=== PATIENT | female | born 1975 | race Caucasian/White ===

== ENCOUNTER → 2022-06-12 09:42 | Outpatient (CLI) | payer OTHER, BC, SELFPAY ==
--- NOTE | ~2022-06-12 | MM_ITS ---
EXAMINATION: MM screening gomez BI w ted HISTORY: Screening mammogram TECHNIQUE: Craniocaudal and mediolateral oblique 3-D tomosynthesis images were obtained and synthetic 2-D images were generated. CAD analysis was submitted and interpreted. COMPARISON: 02/15/2018 bilateral screening mammogram BREAST PARENCHYMAL COMPOSITION: FINDINGS: There is no evidence of suspicious mass, calcification, or architectural distortion to sugg est malignancy in either breast. There has been no suspicious interval change. IMPRESSION: 1. No mammographic evidence of malignancy. 2. Recommend routine screening mammography in one year. BI-RADS Category 1: Negative Reviewed, dictated and finalized at location A.
--- NOTE | ~2022-06-12 | XR_ITS ---
EXAMINATION: XR chest 2V DATE: 06/12/2022 10:22 INDICATION: Cough TECHNIQUE: PA and lateral views of the chest are obtained. COMPARISON: None available FINDINGS: The lungs are free of acute opacities. No pleural effusion or pneumothorax. The cardiomedia stinal silhouette is normal. There is mild thoracic spondylosis. IMPRESSION: 1. No acute cardiopulmonary abnormality. Reviewed, dictated and finalized at location A.
== END ==
PROVIDERS: PCP Internal Medicine; Visit Provider Internal Medicine
DX: Z12.31 Encounter for screening mammogram for malignant neoplasm of breast (principal); R05.9 Cough, unspecified
CPT/HCPCS: 71046; 77063; 77067

== ENCOUNTER 2022-10-14 08:56 | Outpatient (CLI) | payer OTHER, BC, SELFPAY ==
--- NOTE | 2022-10-14 13:23 | WPDPFTINT ---
PFT Procedure Performed PFT Procedure Performed Plethysmography (Lung Vol) Diffusing Cap (DLCO) Flow Vol Loop Spirometry w/o Bronchodil PFT Interpretation This is a pulmonary function test with spirometry, plethysmography and diffusing capacity. The test was performed and results interpreted in accordance with the 2019 and 2005 ATS/ERS Task Force guidelines respectively using the Global Lung Function Initiative-2012 reference equations. Patient demonstrated good effort and cooperation. Reproducibility criteria were met. The quality of the spirometry maneuver was Grade A. Findings: Spirometry: The contour the expiratory flow tracing shows a mild mid expiratory plateau knee contour in 3 of 3 efforts. The contour the inspiratory flow tracing is normal. The FVC is 3.95 L, 94% predicted. The FEV1 is 3.35 L, 100% predicted. The FEV1: FVC ratio is 85%. Plethysmography: The total lung capacity is 5.28 L, 91% predicted. The functional residual capacity is 1.80 L, 55% predicted. The residual volume is 1.33 L, 68% predicted. Diffusing capacity: The diffusing capacity unadjusted for hemoglobin and carboxyhemoglobin is 23.4, 93% predicted. The diffusing capacity adjusted for alveolar volume is 4.67, 105% predicted. Impression: The contour the expiratory flow tracing shows a reproducible mild knee pattern. The knee pattern can be a normal variant or pathologic and has been attributed to a choke point section of the bronchial tree. The normal variant is more common in younger female patients, decreases with age and is more pronounced in the post bronchodilator efforts. The pattern has also been described with kyphosis, kyphoscoliosis, central obstructing mass, and post lung transplantation. Otherwise the spirometry is normal without evidence of an obstructive abnormality. The total lung capacity and residual volume are normal with a decreased functional residual capacity. This is an abnormal but nonspecific lung volume pattern. The diffusing capacity is normal. There are no prior studies for comparison
== END 2022-10-14 08:57 | disposition home or self-care (01) ==
LOC: ANHPFT 08:58
PROVIDERS: PCP Internal Medicine; Visit Provider Internal Medicine
DX: R05.9 Cough, unspecified (principal)
CPT/HCPCS: 94375; 94726; 94729

== ENCOUNTER 2023-12-07 01:07 | Day surgery (SDC) | payer OTHER, BC, SELFPAY ==
[2023-11-08 15:10] VITALS: BMI 37.4
--- NOTE | 2023-12-05 12:03 | SUR.PREOP ---
Patient called regarding upcoming procedure. Reviewed preop instructions, appointment times, and procedure prep.
--- NOTE | 2023-12-06 16:20 | PM.HPGS ---
History of Present Illness History of Present Illness Consent: Risks, benefits, and alternatives have been discussed and questions answered. Patient agrees to proceed with procedure. Chief complaint: Anemia,Unspecified Narrative: Sabi Campoverde is a 48 year old female Referred for colonoscopy due to anemia. Review of Systems Review of Systems: All systems reviewed & are unremarkable except as noted in HPI and below PMFSH Family History Family History Father Hypertension Colon polyp Mother Hypertension Family history of diabetes mellitus in first degree relative Sibling Family history of allergic disorder Grandparent Family history of lung cancer Other Family history of malignant neoplasm of male breast Social History Social History Smoking status: Former smoker Alcohol intake: current Alcohol use details: occasional Substance use type: does not use Living arrangements: with family Spiritual care concerns: No Meds Home Medications and Allergies Home Medications Medication Instructions Recorded Confirmed Type fluticasone propionate 50 1 spray intranasal DAILY 11/08/23 11/08/23 History mcg/actuation nasal spray,suspension losartan 50 mg tablet 50 mg PO DAILY 11/08/23 11/08/23 History metformin 500 mg tablet,extended 500 mg PO DAILY 11/08/23 11/08/23 History release 24 hr montelukast 10 mg tablet 10 mg PO DAILY 11/08/23 11/08/23 History venlafaxine 75 mg capsule,extended 75 mg PO DAILY 11/08/23 11/08/23 History release 24 hr Allergies Allergy/AdvReac Type Severity Reaction Status Date / Time No Known Allergies Allergy Verified 12/07/23 07:46 Exam Resp: Auscultation: clear to auscultation bilaterally Cardio: Rate: regular rate Rhythm: regular rhythm GI: GI Palp: Yes Soft to palpation and No Tenderness to palpation present (GI) Assessment and Plan Assessment and plan (1) Colon cancer screening: Code(s): Z12.11 - Encounter for screening for malignant neoplasm of colon Status: Acute Assessment and Plan: Colonoscopy with possible biopsy or polypectomy or cautery or injection of substances.
[2023-12-07 07:52] VITALS: BP 144/89; PULSE 99; RESP 18; TEMP 36.5; O2SAT 99
[2023-12-07] MEDS: LACTATED RINGERS 1,000 ML 150 ML IV CONT (08:01)
[2023-12-07 08:07] LABS: Glucose Point of Care 135 mg/dl (65-105)
--- NOTE | 2023-12-07 09:05 | WPDANESEPPF ---
Anes - Initial Pre Proc Eval Procedure: Operation Date: 12/07/23 09:00 Proposed Procedures p Colonoscopy - Seth Jackson MD Date/Time: 12/07/23 09:05 Surgeon: Seth Jackson MD Pre Op Diagnosis: Anemia,Unspecified Patient Data Age: 48 Gender: F Height: 1.75 m Weight: 114.4 kg Last Vital Signs Temp 97.7 F 12/07/23 07:52 Pulse 99 12/07/23 07:52 Resp 18 12/07/23 07:52 BP 144/89 H 12/07/23 07:52 Pulse Ox 99 12/07/23 07:52 O2 Del Method Room Air 12/07/23 07:52 Allergies Allergy/AdvReac Type Severity Reaction Status Date / Time No Known Allergies Allergy Verified 12/07/23 07:46 Home Medications Medication Instructions Recorded Confirmed Type fluticasone propionate 50 1 spray intranasal DAILY 11/08/23 11/08/23 History mcg/actuation nasal spray,suspension losartan 50 mg tablet 50 mg PO DAILY 11/08/23 11/08/23 History metformin 500 mg tablet,extended 500 mg PO DAILY 11/08/23 11/08/23 History release 24 hr montelukast 10 mg tablet 10 mg PO DAILY 11/08/23 11/08/23 History venlafaxine 75 mg capsule,extended 75 mg PO DAILY 11/08/23 11/08/23 History release 24 hr Laboratory Tests 12/07/23 08:05 POC Capillary Glucose 135 H mg/dl (65-105) Patient hx anesthesia problems: none Family hx anesthesia problems: none Results Review: All pre-operative results and documents have been reviewed as part of the pre-operative evaluation. [facility] Family History Family History Father Hypertension Colon polyp Mother Hypertension Family history of diabetes mellitus in first degree relative Sibling Family history of allergic disorder Grandparent Family history of lung cancer Other Family history of malignant neoplasm of male breast Social History Social History Smoking status: Former smoker Alcohol intake: current Alcohol use details: occasional Substance use type: does not use Living arrangements: with family Spiritual care concerns: No Anes - Eval Final PreProcedure Day of Procedure 12/07/23 09:05 Patient weight: obese Heart: regular rate and rhythm Lungs: clear to auscultation Airway: Mallampati scale class II Neurological: alert and oriented Last oral intake: >/= 8 hours ASA classification: III Emergent: no Anesthetic plan: proceed Anesthesia type and monitoring: general GIVS and standard monitoring Results Review: All pre-operative results and documents have been reviewed as part of the pre-operative evaluation. Informed Consent: The patient's anesthetic plan and its attendant risks and benefits were discussed with the patient/family/POA. Questions were solicited and answers provided to the satisfaction of the patient/family/POA.
[2023-12-07 09:34] VITALS: BP 128/84; PULSE 85; RESP 18; O2SAT 100
[2023-12-07 09:39] VITALS: BP 136/89; PULSE 79; RESP 18; O2SAT 99
[2023-12-07 09:43] VITALS: BP 134/82; PULSE 76; RESP 18; O2SAT 99
== END 2023-12-07 09:55 | disposition home or self-care (01) ==
PROVIDERS: PCP Internal Medicine; Visit Provider Internal Medicine Gastroenterology
PROC: 0DJD8ZZ Inspection of Lower Intestinal Tract, Via Natural or Artificial Opening Endoscopic (ICD-10-PCS; CPT 45378; principal; 2023-12-07 09:00)
DX: Z12.11 Encounter for screening for malignant neoplasm of colon (principal); D12.2 Benign neoplasm of ascending colon; D64.9 Anemia, unspecified; E66.9 Obesity, unspecified; Z68.37 Body mass index [BMI] 37.0-37.9, adult; Z79.84 Long term (current) use of oral hypoglycemic drugs; Z79.51 Long term (current) use of inhaled steroids; Z87.891 Personal history of nicotine dependence; Z80.0 Family history of malignant neoplasm of digestive organs; Z80.1 Family history of malignant neoplasm of trachea, bronchus and lung; Z80.3 Family history of malignant neoplasm of breast
CPT/HCPCS: 45385; 82948; 88305; J2001; J2704; J7120

== ENCOUNTER 2024-05-01 09:50 | Outpatient (CLI) | payer OTHER, BC, SELFPAY ==
[2024-05-01 13:22] LABS: Mean Corpuscular HGB Conc 29.4 g/dl (32-36); Mean Corpuscular Hemoglobin 21.4 pg (26-34); Mean Corpuscular Volume 72.8 fl (80-100); Mean Platelet Volume 9.7 fl (7.4-10.4); Platelet Count Result 335 k/mm3 (150-375); Red Blood Count 4.67 M/mm3 (4.2-5.4); Red Cell Distribution Width 15.9 % (11.5-14.5); White Blood Count 7.7 K/mm3 (4.5-10.0)
[2024-05-01 13:43] LABS: Alanine Aminotransferase 31 U/L (6-35); Albumin Level 4.3 g/dL (3.5-5.1); Alkaline Phosphatase 71 U/L (38-126); Anion Gap 9 mmol/L (4-12); Aspartate Amino Transferase 29 U/L (14-36); Bilirubin,Total 0.6 mg/dL (0.2-1.3); Blood Urea Nitrogen 11 mg/dL (7-17); Calcium 8.9 mg/dL (8.4-10.2); Carbon Dioxide 24 mmol/L (22-30); Chloride 107 mmol/L (98-107); Cholesterol 187 mg/dL (0-200); Estimated Glomerular Filt Rate > 60; Glucose 114 mg/dL (65-110); HDL Direct 41 mg/dL; Potassium 4.3 mmol/L (3.4-5.0); Sodium 140 mmol/L (137-145); Triglycerides 221 mg/dL (<150)
[2024-05-01 13:52] LABS: Iron 35 ug/dL (37-170)
[2024-05-01 13:55] LABS: LDL Cholesterol Direct 115 mg/dL
[2024-05-01 14:13] LABS: Percent Iron Saturation 9 % (20-50)
[2024-05-01 14:19] LABS: Thyroid Stimulating Hormone 0.954 uIU/mL (0.465-4.680)
[2024-05-01 14:28] LABS: Ferritin 6.38 ng/mL (6.24-137)
== END 2024-05-01 09:51 | disposition home or self-care (01) ==
LOC: ANHGOSHLAB 09:52
PROVIDERS: PCP Family Medicine; Visit Provider Family Medicine
DX: E66.01 Morbid (severe) obesity due to excess calories (principal); D64.9 Anemia, unspecified; F41.9 Anxiety disorder, unspecified; R74.8 Abnormal levels of other serum enzymes; Z79.899 Other long term (current) drug therapy
CPT/HCPCS: 36415; 80053; 80061; 82728; 83540; 83550; 84443; 85027

== ENCOUNTER 2024-09-17 12:06 | Outpatient (CLI) | payer OTHER, BC, SELFPAY ==
--- NOTE | ~2024-09-17 | MM_ITS ---
EXAMINATION: MM screening gomez BI w ted HISTORY: Screening mammogram TECHNIQUE: Craniocaudal and mediolateral oblique 3-D tomosynthesis images were obtained and synthetic 2-D images were generated. CAD analysis was submitted and interpreted. COMPARISON: 06/12/2022, 02/15/2018 BREAST PARENCHYMAL COMPOSITION:Not Dense. There are scattered areas of fibroglandular density. FINDINGS: No suspicious mass, calcification, or architectural distortion are identified in either chip ast to suggest malignancy. There has been no suspicious interval change. IMPRESSION: No mammographic evidence of malignancy. Recommend routine screening mammography in one year. BI-RADS Category 1: Negative Reviewed, dictated and finalized at location . FRAZER
== END 2024-09-17 12:07 | disposition home or self-care (01) ==
LOC: MICIMG 12:08
PROVIDERS: PCP Family Medicine; Visit Provider Family Medicine
DX: Z12.31 Encounter for screening mammogram for malignant neoplasm of breast (principal)
CPT/HCPCS: 77063; 77067

== ENCOUNTER 2025-02-28 08:26 | Outpatient (CLI) | payer OTHER, BC, SELFPAY ==
--- OUTSIDE RECORDS SUMMARY | 2025-02-28 08:32 | XMS_ITS | Encounter Summary ---
Author Organization [facility] Address [address] [place] [address] Care Team Providers Care Underground Truck Operator Name Role Phone Tolu Babb MD Primary Care Provider Encounter Details Date Type Department Care Team (Late st Contact Info) Description 10/16/2020 Lab Requisition [facility] Care DermPath Lab [address] [place] [address] Paul Guerra Jr., MD [address] [place] [address] Social History Tobacco Use Types Packs/Day Years Used Date Smoking Tobacco: Never Assessed Comments Unknown Sex and Gender Information Value Date Recorded Sex Assigned at Not on file Legal Sex Female 6:29 AM HORTICULTURAL SPECIALTY GROWER INSIDE Gender Identity Not on file Sexual Orientation Not on file documented as of this encounter Plan of Treatment Not on file documented as of this encounter Procedures Procedure Name Priority Date/Time Associated Diagnosis Comments DERMATOPATHOLOGY Routine 10/16/2020 12:0 0 AM HORTICULTURAL SPECIALTY GROWER INSIDE documented in this encounter Results * DERMATOPATHOLOGY (10/16/2020 12:00 AM HORTICULTURAL SPECIALTY GROWER INSIDE) Case Report Dermatopathology Report Case: [id number] Authorizing Provider: Paul Guerra Jr., MD Collected: 10/16/2020 12:00 AM Ordering Location: [facility] Care DermPath Lab Received: 10/16/2020 01:05 PM Pathologist: Karolina Garcia MD Specimen: Skin, left posterior shoulder 12/18/202 0 1:19 PM [facility] DERMAT[facility]Y [facility] Final Diagnosis Specimen A. SKIN, left posterior shoulder: DERMAL SCAR RESIDUAL BASAL CELL CARCINOMA NOT IDENTIFIED (L90.5) 0 1:19 PM [facility] Clinical History Pigmented basal cell carcinoma. Check margins. Previous Bx: [id number]. . 0 1:19 PM [facility] Gross Description Specimen A: Received is one formalin filled container labeled with the patient's name and designated left posterior shoulder.The specimen consists of an ellipse measuring [id number] and is oriented with the suture at the 12 o'clock position labeled on the requisition as suture superior. The epidermal surface consists of a centrally located 8x7mm previous biopsy site. The 12 to 6 o'clock margin is inked green. The 6 o'clock to 12 o'clock margin is inked black. The 12 o'clock tip is submitted in cassette 1. The 6 o'clock tip is submitted in cassette 2. The remainder of the ellipse is serially sectioned and submitted in cassettes 3-4. Jar 0. 0 1:19 PM [facility]MAT[facility] Microscopic Description Specimen A. SKIN, left posterior shoulder: There are fibroblasts and collagen bundles oriented parallel to the skin surface. There are elongated blood vessels, some of which are oriented perpendicular to the skin surface. No basal cell carcinoma is identified. 0 1:19 PM [facility] Disclaimer An external and internal positive and negative controls are appropriate for the histochemical, immunohistochemical and immunofluorescence stain(s) in this case (if any), except where stated explicitly. The performance characteristics of the stain(s) cited in this report were developed and its performance characteristic determined by the Dermatopathology Laboratory at [facility], directed by Dr. Dennis Garcia. These tests need not be, and therefore are not, approved by the [place] Food and Drug Administration. The tests are used for clinical purposes. Billing Codes Specimen Charges Stain Charges 74355 1 0 1:19 PM [facility] DERMATOPATH[facility] Embedded Images 0 1:19 PM [facility] Pathology/Cytolog y TISSUE SPECIMEN FROM SKIN / Unknown 10/16/2020 10/16/2020 1:05 PM HORTICULTURAL SPECIALTY GROWER INSIDE Paul Guerra Jr., MD LAB - PATHOLOGY/CYTOLOG Y ORDERABLES Final Result DERMATOPATHOLOGY LABORATORY [facility] - Department of Dermatology [facility] Medicine [address] [place] [address], [address] [phone] documented in this encounter Visit Diagnoses Not on filedocumented in this encounter Care Teams Underground Truck Operator Relationship Specialty Start Date End Date Tolu Babb MD [address] [place] [address] PCP - General 09/09/20 documented as of this encounter
--- OUTSIDE RECORDS SUMMARY | 2025-02-28 08:32 | XMS_ITS | Clinical Summary ---
Author Organization [facility] Address [address] [place] [address] Care Team Providers Care Personalization Specialist Name Role Phone Tolu Babb MD Primary Care Provider Source Comments [facility],non-owned Affiliates and Associated Physician Practices is amultiple site organization consisting of ambulatory clinics and hospital sitesin [place], [place], [place] and [place]. This disclosure is being madepursuant to the Care Everywhere program and may not contain all information available regarding this patient. Last updated 18.[facility] Social History Tobacco Use Types Packs/Day Years Used Date Smoking Tobacco: Never Assessed Comments Unknown Sex and Gender Information Value Date Recorded Sex Assigned at Not on file Legal Sex Female 6:29 AM EDUCATIONAL TECHNOLOGY SPECIALIST Gender Identity Not on file Sexual Orientation Not on file Last Filed Vital Signs Vital Sign Reading Time Taken Comments Blood Pressure 139/87 02/03/2016 10:14 AM CDT Pulse 98 02/03/2016 10:14 AM CDT Temperature 36.8 C (98.3 F) 02/03/2016 10:14 AM CDT Respiratory Rate 18 02/03/2016 10:1 4 AM CDT Oxygen Saturation - - Inhaled Oxygen Concentration - - Weight 112.5 kg (248 lb 1.6 oz) 016 10:14 AM CDT Height 175.3 cm (5' 9 ) 02/03/2016 10:1 4 AM CDT Body Mass Index 36.64 02/03/2016 10:14 AM CDT Plan of Treatment Health Maintenance Due Date Last Done Comments COLLETTE (AGES 45-75) - COL ON CA SCREENING 1976 COLON MONITORING 1976 COLONOSCOPY - COLON CA SCREENING 1976 CT COLONOGRAPHY - COLON CA SCREENING 1976 Colorectal Cancer Screening 1976 FIT - COLON CA SCREENING 1976 FLEX SIG - COLON CA SCREENING 1976 MAMMOGRAM 1976 PAP SMEAR 1976 HIV SCREENING 1991 HEPATITIS C SCREENING 09/19/1994 DTAP/TDAP/TD VACCINES (1 - Tdap) 1995 HEPATITIS B VACCINE (1 of 3 - 19+ 3-dose series) 1995 LIPID TESTING 01/04/2020 01/03/2015 COVID-19 VACCINE ( - 2023-2 5 season) 2024 DEPRESSION SCREENING 10/31/2024 INFLUENZA VACCINE (Season Ended) 2025 ZOSTER VACCINE (1 of 2) 2026 HIB VACCINE Aged Out No longer eligi ble based on patient's age to complete this topic HPV VACCINE Aged Out No longer eligi ble based on patient's age to complete this topic MENINGOCOCCAL (Group B) VACC INE SHARED DECISION-MAKING Aged Out No longer eligibl e based on patient's age to complete this topic MENINGOCOCCAL GROUPS A/C/Y/W VACCINE Aged Out No longer eligible b ased on patient's age to complete this topic PNEUMOCOCCAL VACCINE Aged Out No long er eligible based on patient's age to complete this topic Procedures Procedure Name Priority Date/Time Associated Diagnosis Comments LIPID PROFILE Routine 01/03/2015 11:07 AM EDUCATIONAL TECHNOLOGY SPECIALIST from Last 3 Months or Most Recently Relevant to Health Maintenance Results * (ABNORMAL) LIPID PROFILE (01/03/2015 11:07 AM EDUCATIONAL TECHNOLOGY SPECIALIST) Cholesterol Total 178 <200 mg/dL [facility] HDL 45 >40 mg/dL [facility] Comment: ATP III Classification of HDL Cholesterol: <40 mg/dL: Considered a major risk factor. >60 mg/dL: Considered a negative risk factor. LDL Calculated 85 <100 mg/dL [facility] Comment: ATP III Classification of LDL Cholesterol: <100 mg/dL: Optimal 100 - 129 mg/dL: Near Optimal/Above Optimal 130 - 159 mg/dL: Borderline High 160 - 189 mg/dL: High >190 mg/dL: Very High Triglycerides 239(H) <150 mg/dL [facility] Comment: ATP III Classification of Triglycerides: <150 mg/dL: Normal 150 - 199 mg/dL: Borderline High 200 - 400 mg/dL: High >500 mg/dL: Very High Blood specimen (specimen) BLOOD SPECIMEN / Unknown 01/03/2015 11:07 AM EDUCATIONAL TECHNOLOGY SPECIALIST 01/03/2015 11:46 AM EDUCATIONAL TECHNOLOGY SPECIALIST us Freddie Vargas MD LAB - CHEMISTRY ORDERAB LES Final Result [address] [phone] from Last 3 Months or Most Recently Relevant to Health Maintenance Insurance [facility] [place] [address] ANTH Member Subscriber Plan / Payer (Ef fective 2014-Present) Name:Cain Oakes Relation to Subscriber:Spouse Name:MARELY OAKES Subscriber ID:Not on file Date of :1977 (Home) Address: [address] [place] [address] [place] [address] Payer ID:[id number] (NAIC) Group ID:[id number] Type:O Address: [facility] [id number] [place] [id number] [facility] BC/BLUE BLUE CROSS BLUE [facility] AETNA AETNA BCBS/[place]UE BLUE [place] AET[place] BCBS/[place]UE BLUE [place] BLUE [place] Care Teams Personalization Specialist Relationship Specialty Start Date End Date Tolu Babb MD [address] [place] [address] PCP - General 09/09/20
--- OUTSIDE RECORDS SUMMARY | 2025-02-28 08:32 | XMS_ITS | Encounter Summary ---
Author Organization [facility] Address [address] [facility] [place] [address] Care Team Providers Care Shade Maker Name Role Phone Tolu Babb MD Primary Care Provider [phone] Encounter Details Date Type Department Care Team (Late st Contact Info) Description 09/09/2020 Lab Requisition [facility] Care DermPath Lab [address] [place] [address] Paul Guerra Jr., MD [address] [place] [address] Social History Tobacco Use Types Packs/Day Years Used Date Smoking Tobacco: Never Assessed Comments Unknown Sex and Gender Information Value Date Recorded Sex Assigned at Not on file Legal Sex Female 6:29 AM PAYROLL TAX SPECIALIST Gender Identity Not on file Sexual Orientation Not on file documented as of this encounter Plan of Treatment Not on file documented as of this encounter Procedures Procedure Name Priority Date/Time Associated Diagnosis Comments DERMATOPATHOLOGY Routine 09/09/2020 12:0 0 AM PAYROLL TAX SPECIALIST documented in this encounter Results * DERMATOPATHOLOGY (09/09/2020 12:00 AM PAYROLL TAX SPECIALIST) Case Report Dermatopathology Report Case: [id number] Authorizing Provider: Paul Guerra Jr., MD Collected: 09/09/2020 12:00 AM Ordering Location: [facility] Care DermPath Lab Received: 09/09/2020 12:41 PM Pathologist: Genevieve Castillo MD Specimen: Skin, left posterior shoulder 11/11/202 0 12:47 PM [facility] DERMATOPATHOLOGY LABORATORY Final Diagnosis Specimen A. SKIN, left posterior shoulder: BASAL CELL CARCINOMA, PIGMENTED AND NODULAR (C44.619) 0 12:47 PM [facility] DERMATOPATHOLOGY LABORATORY Clinical History Malignant melanoma vs pigmented basal cell carcinoma vs pigmented seborrheic keratosis. Previous Bx: [id number]. . 0 12:47 PM [facility] DERMATOPATHOLOGY LABORATORY Gross Description Specimen A: Received is one formalin filled container labeled with the patient's name and designated left posterior shoulder. The specimen consists of a shave biopsy measuring [id number]. Jar 0. 0 12:47 PM [facility] DERMATOPATHOLOGY LABORATORY Microscopic Description Specimen A. SKIN, left posterior shoulder: There are aggregates of basaloid cells with a high nuclear to cytoplasmic ratio and peripheral palisading. There is abundant melanin. 0 12:47 PM [facility] DERMATOPATHOLOGY LABORATORY Disclaimer An external and internal positive and negative controls are appropriate for the histochemical, immunohistochemical and immunofluorescence stain(s) in this case (if any), except where stated explicitly. The performance characteristics of the stain(s) cited in this report were developed and its performance characteristic determined by the Dermatopathology Laboratory at [facility], directed by Dr. Dennis Garcia. These tests need not be, and therefore are not, approved by the [place] Food and Drug Administration. The tests are used for clinical purposes. Billing Codes Specimen Charges Stain Charges 68050 1 0 12:47 PM [facility] DERMATOPATHOLOGY LABORATORY Embedded Images 0 12:47 PM [facility] DERMATOPATHOLOGY LABORATORY Pathology/Cytolog y TISSUE SPECIMEN FROM SKIN / Unknown 09/09/2020 09/09/2020 12:41 PM [facility] us Paul Guerra Jr., MD LAB - PATHOLOGY/CYTOLOG Y ORDERABLES Final Result DERMATOPATHOLOGY LABORATORY [facility] - Department of Dermatology [address], [address] [phone] documented in this encounter Visit Diagnoses Not on filedocumented in this encounter Care Teams Shade Maker Relationship Specialty Start Date End Date Tolu Babb MD [address] [place] [id number] PCP - General 09/09/20 documented as of this encounter
[2025-02-28 19:24] LABS: Hematocrit 40.2 % (37.0-47.0); Hemoglobin 12.2 g/dL (12.0-15.0); Mean Corpuscular HGB Conc 30.3 g/dl (32-36); Mean Corpuscular Hemoglobin 24.7 pg (26-34); Mean Corpuscular Volume 81.4 fl (80-100); Mean Platelet Volume 10.1 fl (7.4-10.4); Platelet Count Result 322 k/mm3 (150-375); Red Blood Count 4.94 M/mm3 (4.2-5.4); Red Cell Distribution Width 14.5 % (11.5-14.5); White Blood Count 6.9 K/mm3 (4.5-10.0)
[2025-02-28 20:01] LABS: Iron 66 ug/dL (37-170)
[2025-02-28 20:10] LABS: Percent Iron Saturation 17 % (20-50)
[2025-02-28 21:15] LABS: Alanine Aminotransferase 17 U/L (6-35); Albumin Level 4.4 g/dL (3.5-5.1); Alkaline Phosphatase 65 U/L (38-126); Anion Gap 12 mmol/L (4-12); Aspartate Amino Transferase 35 U/L (14-36); Bilirubin,Total 0.5 mg/dL (0.2-1.3); Blood Urea Nitrogen 12 mg/dL (7-17); Calcium 8.9 mg/dL (8.4-10.2); Carbon Dioxide 26 mmol/L (22-30); Chloride 102 mmol/L (98-107); Cholesterol 214 mg/dL (0-200); Estimated Glomerular Filt Rate > 60; Glucose 52 mg/dL (65-110); HDL Direct 43 mg/dL; Potassium 4.7 mmol/L (3.4-5.0); Sodium 140 mmol/L (137-145); Triglycerides 160 mg/dL (<150)
[2025-02-28 21:20] LABS: LDL Cholesterol Direct 114 mg/dL
[2025-02-28 21:38] LABS: Thyroid Stimulating Hormone 0.809 uIU/mL (0.465-4.680)
[2025-02-28 21:51] LABS: Ferritin 6.57 ng/mL (6.24-137)
[2025-02-28 21:52] LABS: Hemoglobin A1C 4.8 % (<5.7)
== END 2025-02-28 08:27 | disposition home or self-care (01) ==
LOC: ANHGOSHLAB 08:27
PROVIDERS: PCP Family Medicine; Visit Provider Family Medicine
DX: F41.9 Anxiety disorder, unspecified (principal); Z79.899 Other long term (current) drug therapy; R73.03 Prediabetes; R74.8 Abnormal levels of other serum enzymes; D64.9 Anemia, unspecified
CPT/HCPCS: 36415; 80053; 80061; 82728; 83036; 83540; 83550; 84443; 85027

== ENCOUNTER 2025-07-04 08:03 | Outpatient (CLI) | payer OTHER, BC, SELFPAY ==
--- OUTSIDE RECORDS SUMMARY | 2025-07-04 08:08 | XMS_ITS | Encounter Summary ---
Author Organization [facility] Address [address] [place] [address] Care Team Providers Care Power Plant Operator Apprentice Name Role Phone Tolu Babb MD Primary Care Provider [phone] Encounter Details Date Type Department Care Team (Late st Contact Info) Description 10/16/2020 Lab Requisition [facility] Care DermPath Lab [address] [facility] [place] [address] Paul Guerra Jr., MD [address] [facility] [facility] [address] [place] [address] Social History Tobacco Use Types Packs/Day Years Used Date Smoking Tobacco: Never Assessed Comments Unknown Sex and Gender Information Value Date Recorded Sex Assigned at Not on file Legal Sex Female 6:29 AM FORGER HELPER Gender Identity Not on file Sexual Orientation Not on file documented as of this encounter Plan of Treatment Not on file documented as of this encounter Procedures Procedure Name Priority Date/Time Associated Diagnosis Comments DERMATOPATHOLOGY Routine 10/16/2020 12:0 0 AM FORGER HELPER documented in this encounter Results * DERMATOPATHOLOGY (10/16/2020 12:00 AM FORGER HELPER) Case Report Dermatopathology Report Case: [id number] Authorizing Provider: Paul Guerra Jr., MD Collected: 10/16/2020 12:00 AM Ordering Location: [facility] Care DermPath Lab Received: 10/16/2020 01:05 PM Pathologist: Karolina Garcia MD Specimen: Skin, left posterior shoulder 12/18/202 0 1:19 PM [facility] DERMATOPATHOLOGY LABORATORY Final Diagnosis Specimen A. SKIN, left posterior shoulder: DERMAL SCAR RESIDUAL BASAL CELL CARCINOMA NOT IDENTIFIED (L90.5) 0 1:19 PM [facility] DERMATOPATHOLOGY LABORATORY at 1319 FORGER HELPER Clinical History Pigmented basal cell carcinoma. Check margins. Previous Bx: [id number]. . 0 1:19 PM [facility] DERMATOPATHOLOGY LABORATORY Gross Description Specimen A: Received is one formalin filled container labeled with the patient's name and designated left posterior shoulder.The specimen consists of an ellipse measuring [id number] and is oriented with the suture at [...] cassettes 3-4. Jar 0. 0 1:19 PM [facility] DERMATOPATHOLOGY LABORATORY Microscopic Description Specimen A. SKIN, left posterior shoulder: There are fibroblasts and collagen bundles oriented parallel to the skin surface. There are elongated blood vessels, some of which are oriented perpendicular to the skin surface. No basal cell carcinoma is identified. 0 1:19 PM [facility] DERMATOPATHOLOGY LABORATORY Disclaimer An external and internal positive and negative controls are appropriate for the histochemical, immunohistochemical and immunofluorescence stain(s) in this case (if any), except where stated explicitly. The performance characteristics of the stain(s) cited in this report were developed and its performance characteristic determined by the Dermatopathology Laboratory at [facility], directed by Dr. Dennis Garcia. These tests need not be, and therefore are not, approved by the [place] Food and Drug Administration. The tests are used for clinical purposes. Billing Codes Specimen Charges Stain Charges 68956 1 0 1:19 PM [facility] DERMATOPATHOLOGY LABORATORY Embedded Images 0 1:19 PM [facility] DERMATOPATHOLOGY LABORATORY Pathology/Cytolog y TISSUE SPECIMEN FROM SKIN / Unknown 10/16/2020 10/16/2020 1:05 PM FORGER HELPER Paul Guerra Jr., MD LAB - PATHOLOGY/CYTOLOG Y ORDERABLES Final Result DERMATOPATHOLOGY LABORATORY [facility] - Department of Dermatology [facility] Medicine [address] [place] [address], [address] [phone] documented in this encounter Visit Diagnoses Not on filedocumented in this encounter Care Teams Power Plant Operator Apprentice Relationship Specialty Start Date End Date Tolu Babb MD [address] [place] [address] PCP - General 09/09/20 documented as of this encounter
--- OUTSIDE RECORDS SUMMARY | 2025-07-04 08:08 | XMS_ITS | Clinical Summary ---
Author Organization [facility] Address [address] [place] [address] Care Team Providers Care Client Evaluator Name Role Phone Tolu Babb MD Primary Care Provider Source Comments [facility],non-owned Affiliates and Associated Physician Practices is amultiple site organization consisting of ambulatory clinics and hospital sitesin [place], [place], [place] and [place]. This disclosure is being madepursuant to the Care Everywhere program and may not contain all information available regarding this patient. Last updated 18.[facility] Social History Tobacco Use Types Packs/Day Years Used Date Smoking Tobacco: Never Assessed Comments Unknown Sex and Gender Information Value Date Recorded Sex Assigned at Not on file Legal Sex Female 6:29 AM SPA CONCIERGE Gender Identity Not on file Sexual Orientation [...] 10:14 AM CDT Height 175.3 cm (5' 9) 02/03/2016 10:1 4 AM CDT Body Mass [...] - COLON CA SCREENING 1976 MAMMOGRAM 1976 HIV SCREENING 1991 HEPATITIS C SCREENING 09/19/1994 DTAP/TDAP/TD VACCINES (1 - Tdap) 1995 HEPATITIS B VACCINE (1 of 3 - 19+ 3-dose series) 1995 PAP SMEAR 1997 LIPID TESTING 01/04/2020 01/03/2015 DEPRESSION SCREENING 10/31/2024 COVID-19 VACCINE (2023-2 5 season) 2025 INFLUENZA VACCINE (#1) 2025 ZOSTER VACCINE (1 of 2) 2026 [...] Comments LIPID PROFILE Routine 01/03/2015 11:07 AM SPA CONCIERGE from Last 3 Months or Most Recently Relevant to Health Maintenance Results * (ABNORMAL) LIPID PROFILE (01/03/2015 11:07 AM SPA CONCIERGE) Cholesterol Total 178 <200 mg/dL [facility] HDL 45 >40 mg/dL [facility] Comment: ATP III Classification of HDL Cholesterol: <40 mg/dL: Considered a major risk factor. >60 mg/dL: Considered a negative risk factor. LDL Calculated 85 <100 mg/dL [facility] Comment: ATP III Classification of LDL Cholesterol: <100 mg/dL: Optimal 100 - 129 mg/dL: Near Optimal/Above Optimal 130 - 159 mg/dL: Borderline High 160 - 189 mg/dL: High >190 mg/dL: Very High Triglycerides 239(H) <150 mg/dL [facility] Comment: ATP III Classification of Triglycerides: <150 mg/dL: Normal 150 - 199 mg/dL: Borderline High 200 - 400 mg/dL: High >500 mg/dL: Very High Blood specimen (specimen) BLOOD SPECIMEN / Unknown 01/03/2015 11:07 AM SPA CONCIERGE 01/03/2015 11:46 AM SPA CONCIERGE us Freddie Vargas MD LAB - CHEMISTRY ORDERAB LES Final Result [address] [phone] from Last 3 Months or Most Recently Relevant to Health Maintenance Insurance Marilee [facility] [place] [address] ANTH Member Subscriber Plan / Payer (Ef fective 2014-Present) Name:Cain Oakes Relation to Subscriber:Spouse Name:MARELY OAKES Subscriber ID:Not on file Date of :1977 (Home) Address: [address] [place] [address] [place] [address] Payer ID:[id number] (NAIC) Group ID:[id number] Type:O Address: [facility] [id number] [place] [id number] [facility] BC/BLUE BLUE CROSS BLUE [facility] AETNA AETNA BCBS/[place] AET[place] BCBS/[place]UE [place] Care Teams Client Evaluator Relationship Specialty Start Date End Date Tolu Babb MD [address] [place] [address] PCP - General 09/09/20
--- OUTSIDE RECORDS SUMMARY | 2025-07-04 08:08 | XMS_ITS | Encounter Summary ---
Author Organization [facility] Address [address] [facility] [place] [address] Care Team Providers Care Project Management Analyst Name Role Phone Tolu Babb MD Primary Care Provider Encounter Details Date Type Department Care Team (Late st Contact Info) Description 09/09/2020 Lab Requisition [facility] Care DermPath Lab [address] [facility] [place] [address] Paul Guerra Jr., MD [address] [facility] [address] [place] [address] Social History Tobacco Use Types Packs/Day Years Used Date Smoking Tobacco: Never Assessed Comments Unknown Sex and Gender Information Value Date Recorded Sex Assigned at Not on file Legal Sex Female 6:29 AM STOCK COUNTER Gender Identity Not on file Sexual Orientation Not on file documented as of this encounter Plan of Treatment Not on file documented as of this encounter Procedures Procedure Name Priority Date/Time Associated Diagnosis Comments DERMATOPATHOLOGY Routine 09/09/2020 12:0 0 AM STOCK COUNTER documented in this encounter Results * DERMATOPATHOLOGY (09/09/2020 12:00 AM STOCK COUNTER) Case Report Dermatopathology Report Case: [id number] Authorizing Provider: Paul Guerra Jr., MD Collected: 09/09/2020 12:00 AM Ordering Location: [facility] Care DermPath Lab Received: 09/09/2020 12:41 PM Pathologist: Genevieve Castillo MD Specimen: Skin, left posterior shoulder 11/11/202 0 12:47 PM [facility] DERMATOPATHOLOGY LABORATORY Final Diagnosis Specimen A. SKIN, left posterior shoulder: BASAL CELL CARCINOMA, PIGMENTED AND NODULAR (C44.619) 0 12:47 PM [facility] DERMATOPATHOLOGY LABORATORY at [address] STOCK COUNTER Clinical History Malignant melanoma vs pigmented basal cell carcinoma vs pigmented seborrheic keratosis. Previous Bx: [id number]. . 0 12:47 PM [facility] DERMATOPATHOLOGY LABORATORY Gross Description Specimen A: Received is one formalin filled container labeled with the patient's name and designated left posterior shoulder. The specimen consists of a shave biopsy measuring [id number]. Jar 0. 0 12:47 PM [facility] DERMATOPATHOLOGY LABORATORY Microscopic Description Specimen A. SKIN, left posterior shoulder: There are aggregates of basaloid cells with a high nuclear to cytoplasmic ratio and peripheral palisading. There is abundant melanin. 0 12:47 PM [facility] DERMATOPATHOLOGY LABORATORY Disclaimer An external and internal positive and negative controls are appropriate for the histochemical, immunohistochemical and immunofluorescence stain(s) in this case (if any), except where stated explicitly. The performance characteristics of the stain(s) cited in this report were developed and its performance characteristic determined by the Dermatopathology Laboratory at [facility], directed by Dr. Dennis Garcia. These tests need not be, and therefore are not, approved by the [place] Food and Drug Administration. The tests are used for clinical purposes. Billing Codes Specimen Charges Stain Charges 23416 1 0 12:47 PM [facility] DERMATOPATHOLOGY LABORATORY Embedded Images 0 12:47 PM [facility] DERMATOPATHOLOGY LABORATORY Pathology/Cytolog y TISSUE SPECIMEN FROM SKIN / Unknown 09/09/2020 09/09/2020 12:41 PM [facility] us Paul Guerra Jr., MD LAB - PATHOLOGY/CYTOLOG Y ORDERABLES Final Result DERMATOPATHOLOGY LABORATORY [facility] - Department of Dermatology [address], [address] [phone] documented in this encounter Visit Diagnoses Not on filedocumented in this encounter Care Teams Project Management Analyst Relationship Specialty Start Date End Date Tolu Babb MD [address] [place] [address] PCP - General 09/09/20 documented as of this encounter
[2025-07-04 13:12] LABS: Hematocrit 41.1 % (37.0-47.0); Hemoglobin 12.6 g/dL (12.0-15.0); Mean Corpuscular HGB Conc 30.7 g/dl (32-36); Mean Corpuscular Hemoglobin 25.0 pg (26-34); Mean Corpuscular Volume 81.5 fl (80-100); Platelet Count Result 300 k/mm3 (150-375); Red Blood Count 5.04 M/mm3 (4.2-5.4); White Blood Count 6.5 K/mm3 (4.5-10.0)
[2025-07-04 13:22] LABS: Alanine Aminotransferase 16 U/L (6-35); Albumin Level 4.3 g/dL (3.5-5.1); Alkaline Phosphatase 62 U/L (38-126); Anion Gap 10 mmol/L (4-12); Aspartate Amino Transferase 36 U/L (14-36); Bilirubin,Total 0.5 mg/dL (0.2-1.3); Blood Urea Nitrogen 13 mg/dL (7-17); Calcium 8.7 mg/dL (8.4-10.2); Carbon Dioxide 26 mmol/L (22-30); Chloride 103 mmol/L (98-107); Cholesterol 194 mg/dL (0-200); Estimated Glomerular Filt Rate > 60; Glucose 67 mg/dL (65-110); HDL Direct 43 mg/dL; Potassium 4.1 mmol/L (3.4-5.0); Sodium 139 mmol/L (137-145); Total Protein 7.6 g/dL (6.3-8.2); Triglycerides 154 mg/dL (<150)
[2025-07-04 13:27] LABS: Hemoglobin A1C 4.9 % (<5.7)
[2025-07-04 13:54] LABS: Iron 51 ug/dL (37-170)
[2025-07-04 14:05] LABS: Thyroid Stimulating Hormone 0.664 uIU/mL (0.465-4.680)
[2025-07-04 14:13] LABS: Percent Iron Saturation 14 % (20-50)
[2025-07-04 14:42] LABS: Ferritin 7.23 ng/mL (6.24-137)
== END 2025-07-04 08:04 | disposition home or self-care (01) ==
LOC: ANHGOSHLAB 08:04
PROVIDERS: PCP Family Medicine; Visit Provider Family Medicine
DX: E78.5 Hyperlipidemia, unspecified (principal); Z79.899 Other long term (current) drug therapy; R73.03 Prediabetes; E66.01 Morbid (severe) obesity due to excess calories; D64.9 Anemia, unspecified
CPT/HCPCS: 36415; 80053; 80061; 82728; 83036; 83540; 83550; 84443; 85027

== ENCOUNTER 2025-07-09 12:17 | Outpatient (CLI) | payer OTHER, BC, SELFPAY ==
--- NOTE | ~2025-07-09 | US_ITS ---
EXAMINATION: US pelvic complete w TV DATE: 07/09/2025 12:49 INDICATION: Heavy periods. TECHNIQUE: Multiple transabdominal and transvaginal sonographic images of the pelvis were obtained. COMPARISON: Ultrasound 05/29/2014 FINDINGS: TRANSABDOMINAL ULTRASOUND: The uterus measures 16.5 x 9.2 x 8.2 cm. There is no free fluid in the pelvis. TRANSVAGINAL ULTRASOUND: The endometrial complex measures 19 mm in thickness. There are nabothian cysts in the cervix. There are at least 4 uterine fibroids measuring up to 5.4 cm. The ovaries are not visualized. IMPRESSION: 1. Uterine fibroids. 2. Thickened endometrial complex, which may be secondary to endometrial hyperplasia or polyp. Reviewed, dictated and finalized at location E. IMPRESSION: 1. Uterine fibroids. 2. Thickened endometrial complex, which may be secondary to endometrial hyperpl anthony or polyp.
== END 2025-07-09 12:18 | disposition home or self-care (01) ==
LOC: GOSHIMG 12:17
PROVIDERS: PCP Obstetrics & Gynecology; Visit Provider Obstetrics & Gynecology
DX: N92.1 Excessive and frequent menstruation with irregular cycle (principal)
CPT/HCPCS: 76830; 76856

== ENCOUNTER 2025-08-30 07:44 | Outpatient (CLI) | payer OTHER, BC, SELFPAY ==
--- OUTSIDE RECORDS SUMMARY | 2025-08-30 07:53 | XMS_ITS | Clinical Summary ---
Author Organization [facility] Address [address] [place] [address] Care Team Providers Care Import/Export Clerk Name Role Phone Tolu Babb MD Primary Care Provider Source Comments [facility],non-owned Affiliates and Associated Physician Practices is amultiple site organization consisting of ambulatory clinics and hospital sitesin [place], [place], [place] and [place]. This disclosure is being madepursuant to the Care Everywhere program and may not contain all information available regarding this patient. Last updated 18.[facility] Social History Tobacco Use Types Packs/Day Years Used Date Smoking Tobacco: Never Assessed Comments Unknown Sex and Gender Information Value Date Recorded Sex Assigned at Not on file Legal Sex Female 6:29 AM ENERGY ENGINEER Gender Identity Not on file Sexual Orientation [...] Comments LIPID PROFILE Routine 01/03/2015 11:07 AM ENERGY ENGINEER from Last 3 Months or Most Recently Relevant to Health Maintenance Results * (ABNORMAL) LIPID PROFILE (01/03/2015 11:07 AM ENERGY ENGINEER) Cholesterol Total 178 <200 mg/dL [facility] HDL 45 >40 mg/dL [facility] Comment: ATP III Classification of HDL Cholesterol: <40 mg/dL: Considered a major risk factor. >60 mg/dL: Considered a negative risk factor. LDL Calculated 85 <100 mg/dL [facility] Comment: ATP III Classification of LDL Cholesterol: <100 mg/dL: Optimal 100 - 129 mg/dL: Near Optimal/Above Optimal 130 - 159 mg/dL: Borderline High 160 - 189 mg/dL: High >190 mg/dL: Very High Triglycerides 239(H) <150 mg/dL [facility] Comment: ATP III Classification of Triglycerides: <150 mg/dL: Normal 150 - 199 mg/dL: Borderline High 200 - 400 mg/dL: High >500 mg/dL: Very High Blood specimen (specimen) BLOOD SPECIMEN / Unknown 01/03/2015 11:07 AM ENERGY ENGINEER 01/03/2015 11:46 AM ENERGY ENGINEER us Freddie Vargas MD LAB - CHEMISTRY ORDERAB LES Final Result [address] [phone] from Last 3 Months or Most Recently Relevant to Health Maintenance Insurance Marilee [place] [address] ANTH Member Subscriber Plan / Payer (Ef fective 2014-Present) Name:Cain Oakes Relation to Subscriber:Spouse Name:MARELY OAKES Subscriber ID:Not on file Date of :1976 (Home) Address: [address] [place] [address] [place] [address] Payer ID:[id number] (NAIC) Group ID:[id number] Type:O Address: [facility] [id number] [place] [id number] [facility] BC/BLUE BLUE CROSS BLUE [facility] AETNA AETNA BCBS/[place]UE [place]UE [place] Care Teams Import/Export Clerk Relationship Specialty Start Date End Date Tolu Babb MD [address] [place] [address] PCP - General 09/09/20
--- OUTSIDE RECORDS SUMMARY | 2025-08-30 07:53 | XMS_ITS | Encounter Summary ---
Author Organization [facility] Address [address] [facility] [place] [address] Care Team Providers Care Financial Services Specialist Name Role Phone Tolu Babb MD Primary Care Provider Encounter Details Date Type Department Care Team (Late st Contact Info) Description 10/16/2020 Lab Requisition [facility] Care DermPath Lab [address] [facility] [place] [address] Paul Guerra Jr., MD [address] [facility] [facility] [address] [place] [address] Social History Tobacco Use Types Packs/Day Years Used Date Smoking Tobacco: Never Assessed Comments Unknown Sex and Gender Information Value Date Recorded Sex Assigned at Not on file Legal Sex Female 6:29 AM SPLICING TECHNICIAN Gender Identity Not on file Sexual Orientation Not on file documented as of this encounter Plan of Treatment Not on file documented as of this encounter Procedures Procedure Name Priority Date/Time Associated Diagnosis Comments DERMATOPATHOLOGY Routine 10/16/2020 12:0 0 AM SPLICING TECHNICIAN documented in this encounter Results * DERMATOPATHOLOGY (10/16/2020 12:00 AM SPLICING TECHNICIAN) Case Report Dermatopathology Report Case: [id number] Authorizing Provider: Paul Guerra Jr., MD Collected: 10/16/2020 12:00 AM Ordering Location: [facility] Care DermPath Lab Received: 10/16/2020 01:05 PM Pathologist: Karolina Garcia MD Specimen: Skin, left posterior shoulder 12/18/202 0 1:19 PM [facility] DERMATOPATHOLOGY LABORATORY Final Diagnosis Specimen A. SKIN, left posterior shoulder: DERMAL SCAR RESIDUAL BASAL CELL CARCINOMA NOT IDENTIFIED (L90.5) 0 1:19 PM [facility] DERMATOPATHOLOGY LABORATORY at 1319 SPLICING TECHNICIAN Clinical History Pigmented basal cell carcinoma. Check margins. Previous Bx: [id number]. . 0 1:19 PM [facility] DERMATOPATHOLOGY LABORATORY Gross Description Specimen A: Received is one formalin filled container labeled with the patient's name and designated left posterior shoulder.The specimen consists of an ellipse measuring [id number] and is oriented with the suture at [...] 3-4. Jar 0. 0 1:19 PM [facility] DERMATOPATHOLOGY LABORATORY Microscopic Description Specimen A. SKIN, left posterior shoulder: There are fibroblasts and collagen bundles oriented parallel to the skin surface. There are elongated blood vessels, some of which are oriented perpendicular to the skin surface. No basal cell carcinoma is identified. 0 1:19 PM [facility] DERMATOPATHOLOGY LABORATORY Disclaimer An external and [...] purposes. Billing Codes Specimen Charges Stain Charges 22165 1 0 1:19 PM [facility] DERMATOPATHOLOGY LABORATORY Embedded Images 0 1:19 PM [facility] DERMATOPATHOLOGY LABORATORY Pathology/Cytolog y TISSUE SPECIMEN FROM SKIN / Unknown 10/16/2020 10/16/2020 1:05 PM SPLICING TECHNICIAN Paul Guerra Jr., MD LAB - PATHOLOGY/CYTOLOG Y ORDERABLES Final Result DERMATOPATHOLOGY LABORATORY [facility] - Department of Dermatology [facility] Medicine [address] [place] [address], [address] [phone] documented in this encounter Visit Diagnoses Not on filedocumented in this encounter Care Teams Financial Services Specialist Relationship Specialty Start Date End Date Tolu Babb MD [address] [place] [address] PCP - General 09/09/20 documented as of this encounter
--- OUTSIDE RECORDS SUMMARY | 2025-08-30 07:53 | XMS_ITS | Encounter Summary ---
Author Organization [facility] Address [address] [place] [address] Care Team Providers Care Front Services Agent Name Role Phone Tolu Babb MD Primary Care Provider Encounter Details Date Type Department Care Team (Late st Contact Info) Description 09/09/2020 Lab Requisition [facility] Care DermPath Lab [address] [place] [address] Paul Guerra Jr., MD [address] [place] [address] Social History Tobacco Use Types Packs/Day Years Used Date Smoking Tobacco: Never Assessed Comments Unknown Sex and Gender Information Value Date Recorded Sex Assigned at Not on file Legal Sex Female 6:29 AM BACK SEWER Gender Identity Not on file Sexual Orientation Not on file documented as of this encounter Plan of Treatment Not on file documented as of this encounter Procedures Procedure Name Priority Date/Time Associated Diagnosis Comments DERMATOPATHOLOGY Routine 09/09/2020 12:0 0 AM BACK SEWER documented in this encounter Results * DERMATOPATHOLOGY (09/09/2020 12:00 AM BACK SEWER) Case Report Dermatopathology Report Case: [id number] Authorizing Provider: Paul Guerra Jr., MD Collected: 09/09/2020 12:00 AM Ordering Location: [facility] Care DermPath Lab Received: 09/09/2020 12:41 PM Pathologist: Genevieve Castillo MD Specimen: Skin, left posterior shoulder 11/11/202 0 12:47 PM [facility] DERMATOPATHOLOGY LABORATORY Final Diagnosis Specimen A. SKIN, left posterior shoulder: BASAL CELL CARCINOMA, PIGMENTED AND NODULAR (C44.619) 0 12:47 PM [facility] DERMATOPATHOLOGY LABORATORY at [address] Clinical History Malignant melanoma vs pigmented basal cell carcinoma vs pigmented seborrheic keratosis. Previous Bx: [id number]. . 0 12:47 PM [facility] DERMATOPATHOLOGY [facility]ORAT[facility] Gross Description Specimen A: Received is one formalin filled container labeled with the patient's name and designated left posterior shoulder. The specimen consists of a shave biopsy measuring [id number]. Jar 0. 0 12:47 PM [facility] DERMATOPATHOLOGY LABORATORY Microscopic Description Specimen A. SKIN, left posterior shoulder: There are aggregates of basaloid cells with a high nuclear to cytoplasmic ratio and peripheral palisading. There is abundant melanin. 0 12:47 PM [facility] DERMATOPATHOLOGY [facility]ORATORY Disclaimer An external and internal positive and negative controls are appropriate for the histochemical, immunohistochemical and immunofluorescence stain(s) in this case (if any), except where stated explicitly. The performance characteristics of the stain(s) cited in this report were developed and its performance characteristic determined by the Dermatopathology Laboratory at [facility], directed by Dr. Dennis Garcia. These tests need not be, and therefore are not, approved by the [place] Food and Drug Administration. The tests are used for clinical purposes. Billing Codes Specimen Charges Stain Charges 03168 1 0 12:47 PM [facility] DERMATOPATHOLOGY LABORATORY Embedded Images 0 12:47 PM [facility] DERMATOPATHOLOGY LABORATORY Pathology/Cytolog y TISSUE SPECIMEN FROM SKIN / Unknown 09/09/2020 09/09/2020 12:41 PM [facility] us Paul Guerra Jr., MD LAB - PATHOLOGY/CYTOLOG Y ORDERABLES Final Result DERMATOPATHOLOGY LABORATORY [facility] - Department of Dermatology [address], [address] [phone] documented in this encounter Visit Diagnoses Not on filedocumented in this encounter Care Teams Front Services Agent Relationship Specialty Start Date End Date Tolu Babb MD [address] [place] [address] PCP - General 09/09/20 documented as of this encounter
[2025-08-30 08:28] LABS: Hematocrit 39.8 % (37.0-47.0); Hemoglobin 12.5 g/dL (12.0-15.0)
== END 2025-08-30 07:45 | disposition home or self-care (01) ==
PROVIDERS: Anesthesiology; PCP Family Medicine; Visit Provider Obstetrics & Gynecology
DX: D64.9 Anemia, unspecified (principal)
CPT/HCPCS: 36415; 85014; 85018

== ENCOUNTER 2025-09-11 02:21 | Day surgery (SDC) | payer OTHER, BC, SELFPAY ==
--- NOTE | 2025-08-28 12:24 | SUR.PREOP ---
[facility] has started construction of its new state of the art ER which will open Spring 2026. With this, we anticipate parking may be a challenge for some our surgical patients and families. Parking spaces are limited but are available for all Surgical, obstetrics, and ER patients sharing this lot. If you arrive and find you are having a hard time finding a parking space, please note that we understand the challenges, please drive around the hospital and park near Hospital Entrance 1. When you enter this entrance, you can ask a volunteer to direct or take you back to the surgical waiting area to check in. We appreciate everyone?s understanding of these expected challenges while we build for your future. Report to the Outpatient Waiting Room, entrance under the green pavilion located off [address], at time _1130AM__ on date _09/11/25__. Planned Procedure Time: _130PM_ Time changes happen often and if your time is changed the preop area will call you the afternoon before. - You and your visitor will be asked to self-screen and do not enter if you have any COVID symptoms. Please call surgeon if you need to reschedule. - A mask is optional within the hospital at this time. Patients may have clear liquids (water, carbonated beverages, clear teas, apple juice) until 3 hours prior to surgery with a maximum of 20 ounces. - No food from midnight until time of surgery and no smoking, or chewing tobacco (or any form of nicotine). No chewing gum, candy or mints. Take only the following medications with a SIP of water on the morning of surgery: __albuterol if needed DO NOT STOP ANY OF YOUR OTHER PRESCRIPTION MEDICATIONS PRIOR TO SURGERY EXCEPT THE FOLLOWING Hold all vitamins and supplements for 3 days per anesthesiologist. Medications to hold per physician __Wegovy 10 days prior to surgery__ Date to take last dose of vitamins:__09/07/25___ Please no make-up, nail welsh, hairspray, perfume, deodorant, or body powder the day of surgery.? No jewelry (including any body piercings) or valuables the day of surgery, leave them at home.? Please take a shower or bath the night before, or the morning of, surgery with an antibacterial soap.? Wear comfortable, loose fitting clothing.? - Jewelry must be removed prior to entering the operating room.? Rings and piercings that are not removed may be cut off. - The hospital will not accept responsibility for valuables.? - Please leave all valuables, including medications, at home the day of surgery. If you are going home after surgery, a licensed pack train driver must drive you home.? - NO public transportation without another adult if you receive anesthesia. - We recommend that an adult stay with you for 24 hours following discharge. - We also recommend that you do not drive, make important decision, drink alcoholic beverages, or take any drugs that were not prescribed by your health care provider for at least 24 hours after your discharge time. Follow any additional instructions given to you from your surgeon. Telephone instructions given to __Wendy___and asked if any additional questions and then verbalized understanding. Patient advised to call surgeon office or pre surgery nurse liaison [phone] if any additional questions.
[2025-08-28 12:47] VITALS: BMI 33.3
[2025-09-11] VITALS (9 sets, daily range): BP systolic 109–148; BP diastolic 65–85; PULSE 85–93; RESP 10–16; TEMP 36.4–36.7; O2SAT 97–100; BMI 33.9
--- NOTE | 2025-09-11 10:11 | PM.IMHP ---
H&P: HPI History of Present Illness Date/Time: 09/11/25 10:11 Chief Complaint: Heavy periods. Narrative: 49-year-old woman with menometrorrhagia. The diagnosis of a liver cyst prompted her to stop taking her combined oral contraceptive. Ultrasound exam shows a fibroid uterus, with the largest myoma measuring 5.4cm in greatest dimension. She also has a thickened endometrial complex, measuring 1.9mm thick. She has completed her childbearing. She is interested in surgical management. Review of Systems Review of Systems: All systems reviewed & are unremarkable except as noted in HPI and below PMFSH Surgical History Surgical History Hx laparoscopic cholecystectomy Family History Family History Father Hypertension Colon polyp Skin cancer Mother Hypertension Family history of diabetes mellitus in first degree relative Skin cancer Kidney failure Sibling Hypertension Grandparent Skin cancer Kidney failure Hypertension Diabetes mellitus Other Family history of malignant neoplasm of male breast Social History Social History Smoking status: Never smoker Alcohol intake: current Drinks per week: 3 Alcohol use details: occasional -mixed drinks Substance use type: does not use Do You Feel Safe in your Home?: Yes Lack of Transportation: No Lack of Food: Never True Current Housing: I Have Housing Concerned About Future Housing: No Difficulty Paying Gas/Electric Bills: No Difficulty Paying for Meds: No Currently Unemployed: No Education: Associate Degree Difficulty w/ Childcare or Family Care: No Living arrangements: with family Spiritual care concerns: No Meds Home Medications and Allergies Home Medications ?Medication ?Instructions ?Recorded ?Confirmed ?Type fluticasone propionate 50 2 spray intranasal DAILY 11/08/23 08/28/25 History mcg/actuation nasal spray,suspension albuterol sulfate 90 mcg/actuation 2 inh inhalation Q4H PRN shortness 05/24/24 08/28/25 Rx aerosol inhaler of breath or wheezing #8.5 grams azelastine 137 mcg (0.1 %) nasal 137 mcg intranasal Q12H PRN 11/12/24 08/28/25 History spray rhinitis losartan 50 mg tablet 50 mg PO DAILY #90 tabs 03/14/25 08/28/25 Rx ascorbate calcium (vitamin C) 500 500 mg PO DAILY 06/20/25 08/28/25 History mg tablet venlafaxine 75 mg capsule,extended 75 mg PO DAILY #30 caps 06/20/25 08/28/25 Rx release 24 hr montelukast 10 mg tablet 10 mg PO DAILY #90 tabs 08/05/25 08/28/25 Rx ferrous sulfate 324 mg (65 mg 324 mg PO DAILY 08/28/25 08/28/25 History iron) tablet,delayed release semaglutide (weight loss) 1.7 1.7 mg (0.75 mL) subcut WEEKLY #3 09/09/25 Rx mg/0.75 mL subcutaneous pen mL injector ([email or web address]) Allergies Allergy/AdvReac Type Severity Reaction Status Date / Time No Known Allergies Allergy Verified 08/28/25 12:28 Exam Const: Orientation/consciousness: patient oriented x3 Other: Well-developed, well-nourished female in no acute distress. Neck: Thyroid: thyroid normal Lymphatic: no lymphadenopathy noted (in neck, axilla or inguinal nodes) Resp: Effort & Inspection: normal respiratory effort Auscultation: clear to auscultation bilaterally Cardio: Rate: regular rate Rhythm: regular rhythm Heart sounds: S1 normal heart sound present and S2 normal heart sound present GI: Other: ABD: Soft, nontender, nondistended. No guarding or rebound tenderness. No hepatosplenomegaly. : General: Yes no CVA tenderness Other: External genitalia: normal female hair distribution, without lesion. Urethral meatus: no lesion, non prolapsed. Bladder: no mass, nontender Vagina: well-estrogenized, without lesion or discharge. No cystocele or rectocele. Cervix: no lesion or discharge. Uterus: small, anteverted, freely mobile, nontender Adnexa: no mass or tenderness. Anus/perineum: no lesions, nontender Back/Spine/Pelvis: Back: no CVA tenderness Skin: General skin exam: normal color and no rashes or lesions noted Neuro: General: patient oriented x3 Extrem: Other: Extremities: nontender with no edema Psych: Mental Status: mental status grossly normal Affect: normal affect Assessment and Plan Assessment and plan (1) Menometrorrhagia: Code(s): N92.1 - Excessive and frequent menstruation with irregular cycle Status: Acute Assessment and Plan: A: Menometrorrhagia in the setting of a fibroid uterus and a thickened endometrial complex. Desired sterility. P: We have reviewed medical as well surgical approaches to her problem, and she prefers the latter. Specifically, I have offered her a laparoscopic bilateral salpingectomy, hysteroscopy, dilation and sharp curettage, and endometrial ablation. She understands there are temporary methods of contraception available to her. She understands that there are nonsurgical options as well as surgical options. She understands that bilateral salpingectomy will render her permanently sterile. She understands that there is a failure rate associated with tubal sterilization, as well as an inherent ectopic gestation risk. Furthermore, she understands risks of surgery to include risks of anesthesia, risks of pain, infection, bleeding, blood products, thromboembolic phenomena and damage to adjacent structures such as bowel, bladder, ureters, blood vessels and nerves. She understands all these risks and elects to proceed with surgery. (2) Fibroid uterus: Qualifiers: Uterine leiomyoma location: unspecified location Qualified Code(s): D25.9 - Leiomyoma of uterus, unspecified Code(s): D25.9 - Leiomyoma of uterus, unspecified Status: Acute (3) Unwanted fertility: Code(s): Z30.09 - Encounter for other general counseling and advice on contraception Status: Acute (4) Abnormal pelvic ultrasound: Code(s): R93.89 - Abnormal findings on diagnostic imaging of other specified body structures Status: Acute
--- NOTE | 2025-09-11 11:58 | WPDHPUPDATE1 ---
History and Physical Update Update Date/Time: 09/11/25 11:58 History and Physical has been reviewed, including an updated exam of the patient. There are NO changes in the patient's condition. Risks, benefits, and alternatives have been discussed and questions answered. Patient agrees to proceed with procedure.
[2025-09-11] MEDS: LACTATED RINGERS 1,000 ML 30 ML IV CONT ×2 (12:00→14:30)
--- NOTE | 2025-09-11 12:09 | WPDANESEPPF ---
Anes - Initial Pre Proc Eval Procedure: Operation Date: 09/11/25 13:30 Proposed Procedures p Hysteroscopy Dilation and Curettage with Joellen Endometrial Ablation, Laparoscopic Bilateral Salpingectomy - Jorgito Rivera MD Date/Time: 09/11/25 12:09 Surgeon: Jorgito Rivera MD Pre Op Diagnosis: Thickened Endometrium, & Desires Sterilization Patient Data Age: 49 Gender: F Height: 1.75 m Weight: 102.2 kg Allergies Allergy/AdvReac Type Severity Reaction Status Date / Time No Known Allergies Allergy Verified 08/28/25 12:28 Home Medications ?Medication ?Instructions ?Recorded ?Confirmed ?Type fluticasone propionate 50 2 spray intranasal DAILY 11/08/23 08/28/25 History mcg/actuation nasal spray,suspension albuterol sulfate 90 mcg/actuation 2 inh inhalation Q4H PRN shortness 05/24/24 08/28/25 Rx aerosol inhaler of breath or wheezing #8.5 grams azelastine 137 mcg (0.1 %) nasal 137 mcg intranasal Q12H PRN 11/12/24 08/28/25 History spray rhinitis losartan 50 mg tablet 50 mg PO DAILY #90 tabs 03/14/25 09/11/25 Rx ascorbate calcium (vitamin C) 500 500 mg PO DAILY 06/20/25 09/11/25 History mg tablet venlafaxine 75 mg capsule,extended 75 mg PO DAILY #30 caps 06/20/25 09/11/25 Rx release 24 hr montelukast 10 mg tablet 10 mg PO DAILY #90 tabs 08/05/25 09/11/25 Rx ferrous sulfate 324 mg (65 mg 324 mg PO DAILY 08/28/25 09/11/25 History iron) tablet,delayed release semaglutide (weight loss) 1.7 1.7 mg (0.75 mL) subcut WEEKLY #3 09/09/25 09/11/25 Rx mg/0.75 mL subcutaneous pen mL injector ([employer]) Patient hx anesthesia problems: none Family hx anesthesia problems: none Results Review: All pre-operative results and documents have been reviewed as part of the pre-operative evaluation. [facility] Past Medical History Medical History Fatty liver Prediabetes Sleep apnea Surgical History Surgical History Hx laparoscopic cholecystectomy Family History Family History Father Hypertension Colon polyp Skin cancer Mother Hypertension Family history of diabetes mellitus in first degree relative Skin cancer Kidney failure Sibling Hypertension Grandparent Skin cancer Kidney failure Hypertension Diabetes mellitus Other Family history of malignant neoplasm of male breast Social History Social History Smoking status: Never smoker Alcohol intake: current Drinks per week: 3 Alcohol use details: occasional -mixed drinks Substance use type: does not use Do You Feel Safe in your Home?: Yes Lack of Transportation: No Lack of Food: Never True Current Housing: I Have Housing Concerned About Future Housing: No Difficulty Paying Gas/Electric Bills: No Difficulty Paying for Meds: No Currently Unemployed: No Education: Associate Degree Difficulty w/ Childcare or Family Care: No Living arrangements: with family Spiritual care concerns: No Anes - Eval Final PreProcedure Day of Procedure 09/11/25 12:09 Patient weight: obese Heart: regular rate and rhythm Lungs: clear to auscultation Airway: Mallampati scale class II Neurological: alert and oriented Last oral intake: >/= 8 hours ASA classification: III Emergent: no Anesthetic plan: proceed Anesthesia type and monitoring: general ETT and standard monitoring Results Review: All pre-operative results and documents have been reviewed as part of the pre-operative evaluation. Informed Consent: The patient's anesthetic plan and its attendant risks and benefits were discussed with the patient/family/POA. Questions were solicited and answers provided to the satisfaction of the patient/family/POA.
[2025-09-11] MEDS: ACETAMINOPHEN 500 MG TABLET 1000 MG PO (12:10)
[2025-09-11] MEDS: KETOROLAC 15 MG/ML VIAL (*BKC) IV PUSH (12:10)
[2025-09-11 12:21] LABS: BEDSIDEPREGUCG Negative (Negative)
[2025-09-11] MEDS: LIDOCAINE 1% LOCAL INJ 10 ML VIAL INFILTRATE (14:04)
--- NOTE | 2025-09-11 14:07 | S_PTH ---
PATIENT: Sabi Campoverde LOC: [facility] U#:[id number] AGE/SX: 49/F ROOM: RE09/11/[address]: Jorgito Rivera MD : 1975 BED: DIS: 09/11/2025 SPEC #: [id number] RECD: 09/12/25 08:43 STATUS: JOHN REEly #: [id number] DONI: 09/11/25 14:[address]: Jorgito Rivera DEPT: [facility] Surgical RECD BY: Liberty Pickens ENTERED: 09/12/25 08:43 SP TYPE: Surgical OTHR DR: Dori Carpio DO Tissues: A - Fallopian Tube Bilateral B - Endometrial Curettings Procedures: Gross and Microscopic Level 2 Hematoxylin and Eosin Stain Gross and Microscopic Level 4
--- NOTE | 2025-09-11 14:29 | P.OP_ITS ---
Procedure Note - Detailed Date of Procedure 09/11/25 Pre-op Diagnosis Menometrorrhagia Abnormal pelvic ultrasound Desired sterility Post-op Diagnosis Same Procedure Performed Laparoscopic bilateral salpingectomy Hysteroscopy Dilation and sharp curettage Endometrial ablation Surgeon Jorgito Rivera MD Anesthesia General and Local (1% lidocaine) Findings On laparoscopy, the uterus is obviously fibroid. Bilateral tubes and ovaries unremarkable. On hysteroscopy, the endometrial cavity was unremarkable. Both t ubal ostia were seen. There were no endometrial masses seen. Description of Procedure The patient was taken to the operating room where general endotracheal anesthesia was administered. She was prepared and draped in the usual sterile fashion in dorsal lithotomy position. The bladder was drained with a red rubber catheter. A sterile speculum was placed into the vagina. The anterior lip of the cervix was grasped with a single-tooth tenaculum. The acorn uterine manipulator was placed. The speculum was withdrawn. Gloves were changed and attention was turned the abdomen. An infraumbilical skin incision was made with a scalpel. The abdomen was tented and a 5mm bladeless trocar was advanced under direct laparoscopic visualization. Pneumoperitoneum was administered using carbon dioxide gas. A survey of the pelvis and abdomen revealed the findings noted above. Additional 5 mm incisions were made in the midline above the pubic symphysis, and in the left lower quadrant, and 5 mm ports were advanced using bladeless trocars under direct laparoscopic visualization. The Fallopian tube on the right side was grasped and elevated and dissected off the ovary using the Ligasure. The tube was then amputated from the uterus and passed off to be sent to pathology. The left tube was similarly dissected free and excised. Hemostasis was excellent. The ports were withdrawn. The gas was allowed to escape. The skin incisions were reapproximated using interrupted subcuticular sutures of 4 0 Vicryl. Dermaflex was applied externally. Attention was returned to the vagina, where the acorn manipulator was withdrawn and the speculum reintroduced. Ten mL of 1% lidocaine was administered in a paracervical block. The cervix was then gently dilated using Hegar dilators until an 8 mm dilator could be passed. Hysteroscopy was performed using sterile saline as a distention medium. Findings are as noted above. Sharp curettage was then performed, and endometrial curettings were collected on a Telfa pad and passed off to be sent to pathology. Finally, the the Joellen device was advanced and endometrial ablation commenced without difficulty. The device was withdrawn and a second look was taken using the hysteroscope. Excellent coverage of the endometrial cavity was noted. The tenaculum was removed. Hemostasis was excellent. Sponge, lap, needle and instrument counts were correct. The patient was awakened and taken to the recovery room in stable condition. I was present and scrubbed through the entire procedure. Implants None Estimated Blood Loss 5 Drains No Packing No Pathology Yes (Bilateral Fallopian tubes, endometrial curettings) Complications None Condition Stable Disposition PACU [facility] Billing Surgery - Charge Forward: Surgery Billing
[2025-09-11] MEDS: fentaNYL CITRATE INJ (*CRX) 100 MCG/2 ML VIAL 25 MCG IV PUSH ×3 (14:51→15:17)
[2025-09-11] MEDS: oxyCODONE HCL (*CRX) 5 MG TAB IR PO (15:45)
== END 2025-09-11 16:23 | disposition home or self-care (01) ==
PROVIDERS: PCP Family Medicine; Visit Provider Obstetrics & Gynecology
PROC: 0UDB8ZZ Extraction of Endometrium, Via Natural or Artificial Opening Endoscopic (ICD-10-PCS; CPT 58558; principal; 2025-09-11 13:30)
DX: N92.1 Excessive and frequent menstruation with irregular cycle (principal); N84.0 Polyp of corpus uteri; Z30.2 Encounter for sterilization; D25.9 Leiomyoma of uterus, unspecified; K76.89 Other specified diseases of liver; E66.9 Obesity, unspecified; Z68.33 Body mass index [BMI] 33.0-33.9, adult
CPT/HCPCS: 58661; 58563; 88302; 88305; A9270; J1100; J1885; J2003; J2250; J2405; J2704; J3010; J7120